=== PATIENT | female | born 1945 | race Caucasian/White ===

== ENCOUNTER → 2024-10-09 14:21 | Outpatient (REF) | payer OTHER, SELFPAY | LOC: WDC 14:21 | PROVIDERS: ATTENDING PHYSICIAN Internal Medicine | DX: Z12.39 Encounter for other screening for malignant neoplasm of breast (principal); Z78.0 Asymptomatic menopausal state; Z12.31 Encounter for screening mammogram for malignant neoplasm of breast | CPT/HCPCS: 77063; 77067; 77080 ==